=== PATIENT | female | born 1940 | race Caucasian/White ===

== ENCOUNTER → 2021-04-22 | Outpatient (CLI) | payer MEDICARE, OTHER, SELFPAY ==
[2021-04-22 16:16] VITALS: BMI 27.8
--- NOTE | 2021-04-22 16:29 | RAD_ITS ---
STUDY: X-RAY CHEST REASON FOR EXAM: Female, 81 years old. COUGH TECHNIQUE: Frontal and lateral views of the chest. COMPARISON: None. FINDINGS: The lungs are clear and expanded. There is no demonstrated pleural abnormality. Normal size heart. Normal mediastinum and jeffrey. Normal visualized pulmonary arteries. Normal visualized aortic arch and descending thoracic aorta. Moderate scoliosis. Normal visualized ribs, clavicles, and shoulders. There is no demonstrated abnormality of the visualized soft tissue structures of the upper abdomen. RAD/Chest PA and Lateral IMPRESSION: No acute disease Electronically Signed: Kaushal Abarca MD at 18:04 EDT , Service support ,
== END | disposition home or self-care (01) ==
LOC: MTRAD 16:29
PROVIDERS: PCP Family Medicine; Referring Provider Physician Assistant; Visit Provider Physician Assistant
DX: R05 Cough (principal)
CPT/HCPCS: 71046

== ENCOUNTER → 2021-04-26 09:34 | Outpatient (CLI) | payer MEDICARE, OTHER, SELFPAY ==
[2021-04-22 16:16] VITALS: BMI 27.8
[2021-04-26 12:04] LABS: Absolute Lymphocyte Count 2.22 X10^3/uL (0.83-4.51); Absolute Neutrophil Count 12.6 X10^3/uL (2.0-7.7); Basophil# 0.07 X10^3/uL; Basophil% 0.4 % (0-1); Eosinophil# 1.31 X10^3/uL; Eosinophils% 7.5 % (0-5); Hematocrit 38.8 % (37-47); Hemoglobin 12.8 g/dL (12.0-15.0); Lymphocyte # 2.22 X10^3/ul (0.83-4.51); Lymphocyte % 12.6 % (19-41); Mean Corpuscular Hgb 31.5 pg (27.0-32.0); Mean Corpuscular Volume 95.6 fL (81-99); Mean Platelet Vol. 8.6 fl (6.2-12.0); Monocyte# 1.33 X10^3/uL; Monocyte% 7.6 % (0-10); NRBC Flagged by Analyzer 0 % (0-5); Neutrophil # 12.58 X10^3/uL (2.7-7.7); Neutrophil % 71.5 % (47-70); Platelet Count 497 K/mm3 (150-450); RBC Distribution Width CV 12.7 % (11.6-14.6); RBC Distribution Width SD 45.1 fl (35.1-43.9); Red Blood Count 4.06 M/mm3 (4.2-5.4); White Blood Count 17.6 K/mm3 (4.4-11.0)
[2021-04-26 12:30] LABS: ALB/GLOB Ratio 0.8 RATIO (0.9-2.4); AST(SGOT) 13 U/L (15-37); Alanine Aminotransfer ALT/SGPT 19 U/L (13-56); Albumin, Serum 3.6 g/dL (3.2-5.0); Alkaline Phosphatase 102 U/L (45-117); Anion Gap 5 (5-15); BUN 18 mg/dL (7-18); BUN/Creat Ratio 22.3 RATIO (10-20); Chloride 105 mmol/L (98-107); Cholesterol 157 mg/dL (200); Creatinine, Serum 0.81 mg/dL (0.55-1.02); EST Glomerular Filtration Rate 73 mL/min (>60); Est Glom Filt Rate - Afr Amer 88 mL/min (>60); Globulin 4.3 g/dL (2.2-4.2); Glucose 107 mg/dL (74-106); High Density Lipoprotein 67 mg/dL; Potassium 4.2 mmol/L (3.5-5.1); Protein, Total 7.9 g/dL (6.4-8.2); Sodium Level 137 mmol/L (136-145); Thyroid Stim Hormone (TSH) 1.23 uIU/mL (0.358-3.74); Triglycerides 126 mg/dL; Very Low Density Lipoprotein 25 mg/dL (5-40)
[2021-04-26 12:33] LABS: Microalbumin,Random Urine 17.6 mg/L (NO RANGE EST.); Microalbumin:Creatinine Ratio 9.4 mg/g CRE (<30 mg/g CRE)
== END ==
PROVIDERS: PCP Family Medicine; Visit Provider Family Medicine
DX: I10 Essential (primary) hypertension (principal); E78.00 Pure hypercholesterolemia, unspecified; J45.909 Unspecified asthma, uncomplicated
CPT/HCPCS: 36415; 80053; 80061; 82043; 82570; 84443; 85025

== ENCOUNTER 2021-05-01 18:07 | Inpatient (IN) | payer MEDICARE, OTHER, SELFPAY ==
[2021-04-22 16:16] VITALS: BMI 27.8
[2021-05-01] VITALS (9 sets, daily range): BP systolic 118–134; BP diastolic 63–75; PULSE 81–105; RESP 15–28; TEMP 36.7–37.1; O2SAT 87–98; BMI 27.8
--- NOTE | 2021-05-01 18:25 | EKG12_ITS ---
Test Reason : SOB Blood Pressure : / mmHG Vent. Rate : 092 BPM Atrial Rate : 092 BPM P-R Int : 126 ms QRS Dur : 088 ms QT Int : 352 ms P-R-T Axes : -05 -25 018 degrees QTc Int : 435 ms Sinus rhythm with Premature atrial complexes with Aberrant conduction Nonspecific ST abnormality Abnormal ECG Confirmed by MATILDA MORRISON, DORIAN ([id number]), desk editor CIARA FLORES ([id number]) on 05/04/2021 9:21:03 AM Referred By: SHABBIR Confirmed By:DORIAN GREY MD
--- NOTE | 2021-05-01 18:25 | CT_ITS ---
STUDY: CTA CHEST REASON FOR EXAM: Female, 81 years old. hypoxia RADIATION DOSAGE (If Supplied By Facility): CTDIvol = ( 11.66 ) mGy, DLP = ( 433.54 ) mGycm TECHNIQUE: The examination was performed with the intravenous administration of IV 75mL Isovue-370. Post-processing of the angiographic images was performed, with multiplanar reformation and 3D reconstruction. Individualized dose optimization techniques were used for this CT. COMPARISON: None. FINDINGS: Normal enhancement of the main pulmonary artery and right and left pulmonary arteries. Normal enhancement of the bilateral peripheral pulmonary arteries. There is no demonstrated pulmonary embolism. Normal thoracic aorta and visualized great vessels. There is no demonstrated aortic dissection. Normal heart and pericardium. Normal mediastinum. Normal hilar regions. Normal visualized trachea and bronchi. The lungs are well expanded. Ill-defined subpleural groundglass opacities are seen more prominent in the lung bases , may represent atypical pneumonia or viral pneumonia (COVID-19 ?). Normal pleura. Normal chest wall structures. Normal osseous structures. Normal visualized upper abdomen. CT/CTA Chest W/WO Contrast IMPRESSION: No demonstrated pulmonary embolism or arterial dissection. Ill-defined subpleural groundglass opacities are seen more prominent in the lung bases , may represent atypical pneumonia or viral pneumonia (COVID-19 ?). Electronically Signed: Nilda Estrada MD at 19:44 EDT Tel , Service support ,
--- NOTE | 2021-05-01 18:27 | ED.VIS.DYS ---
HPI History of Present Illness Chief Complaint: Shortness of Breath Narrative Narrative: 81-year-old female presenting with dyspnea. She states she has been dyspneic for about 2 weeks. She complains of a cough. She states that her cough is painful but otherwise she does not have any chest pain. She does have pain on deep inspiration in the center of her chest. She denies any fever, chills. She denies change in taste or smell. She is had a COVID-19 vaccine. She is not been exposed to anybody that is ill. After a week of coughing she was taken to urgent care where she had a chest x-ray which was negative. Patient placed on Augmentin anyway and continues to cough and feel dyspneic. Over the last couple of days she has felt more fatigue. Today her son stated that she laid in bed all day. He checked her pulse ox and it was 87. She has history of asthma distantly and not had an attack in many years. She has no nausea or vomiting. [facility] Medical History Acute bronchitis, unspecified Asthma Cough Hypertension SOB (shortness of breath) URI (upper respiratory infection) Home Medications amoxicillin 875 mg-potassium clavulanate 125 mg tablet 1 tab PO BID #20 tab 04/22/21 [Rx Last Taken Unknown] atorvastatin 10 mg tablet 10 mg PO DAILY 04/22/21 [History Last Taken Unknown] lisinopril 2.5 mg tablet 2.5 mg PO DAILY 04/22/21 [History Last Taken Unknown] montelukast 10 mg tablet 10 mg PO DAILY 04/22/21 [History Last Taken Unknown] Allergy/AdvReac Type Severity Reaction Status Date / Time No Known Allergies Allergy Verified 05/01/21 18:10 Social History Smoking Status: Never smoker alcohol intake: never ROS ROS ED Constitutional Constitutional ED: Reports other Details: Fatigue ; Denies chills or fever(s) Eyes Eyes: Denies blurry vision or diplopia ENT ENT ED: Denies rhinorrhea or sore throat Cardiovascular Cardiovascular: Denies orthopnea Respiratory/Chest Respiratory/Chest: Reports dyspnea, dyspnea on exertion and other Details: Painful cough and pain with deep inspiration ; Denies orthopnea Gastrointestinal Gastrointestinal: Denies abdominal pain, constipation, diarrhea, nausea or vomiting Genitourinary Genitourinary ED: Denies dysuria or hematuria Musculoskeletal Musculoskeletal: Denies arthralgias or myalgias Integumentary Denies abscess or rash Neurologic Neurologic: Denies headache(s), paresthesias or weakness Psychiatric Psychiatric: Denies anxiety or depression EXAM Physical Exam Const Vital Signs: 05/01/21 18:08 05/01/21 18:19 05/01/21 18:21 Temperature 98.7 F 98.1 F Temperature Source Temporal Temporal Pulse Rate 105 H 93 Respiratory Rate 16 24 H Respiratory Effort Short of Breath Blood Pressure 127/71 H 127/71 H Blood Pressure Mean 89 89 Pulse Ox 87 88 95 Oxygen Delivery Method Room Air Nasal Cannula Nasal Cannula Oxygen Flow Rate (L/min) 2 2 05/01/21 18:27 05/01/21 19:45 05/01/21 20:01 Temperature 98.6 F 98.3 F Temperature Source Temporal Temporal Pulse Rate 96 82 Respiratory Rate 28 H 20 H Respiratory Effort Blood Pressure 130/63 H 118/65 Blood Pressure Mean 85 82 Pulse Ox 96 97 94 Oxygen Delivery Method Nasal Cannula Nasal Cannula Room Air Oxygen Flow Rate (L/min) 2 2 05/01/21 21:28 05/01/21 22:10 Temperature 98.1 F 98.3 F Temperature Source Temporal Temporal Pulse Rate 92 92 Respiratory Rate 20 H 15 Respiratory Effort Blood Pressure 134/75 H 126/74 H Blood Pressure Mean 94 91 Pulse Ox 98 95 Oxygen Delivery Method Nasal Cannula Nasal Cannula Oxygen Flow Rate (L/min) 2 2 Positive well nourished General Appearance ED: NAD HEENT Reports moist mucous membranes atraumatic Eyes PERRL and EOMs intact bilaterally Neck no lymphadenopathy and supple Resp normal respiratory effort and clear to auscultation bilaterally Cardio regular rate and regular rhythm GI non-tender and non-distended Palpation: soft Extremity General Extremety ED: Negative for edema or tenderness General Extremity: Negative for edema Neuro oriented x3 Sensorium / Orientation: alert and oriented to person Psych mental status grossly normal Thought Process: normal thought process Skin Lesions: no lesions Rashes: no rashes MDM MDM MDM Narrative Medical decision making narrative: Patient presenting with dyspnea and became hypoxic down to 87 at home. Apparently its been 2 weeks of this and worsening over the last 2 days. Her son states she slept all day. He brought her in when he noted that she was hypoxic. Given patient's vitals she was pancultured and worked up for sepsis. She does not look critically ill however. EKG is sinus rhythm at [address] abnormality. CBC showed a leukocytosis of 20.8. Hemoglobin 12.5 and hematocrit 38.0 platelets 399. Patient is not absolutely lymphopenic. Renal function electrolytes are normal. Lactic acid is normal. Troponin 3.6. Urinalysis is negative. CTA of the chest shows ill-defined groundglass opacities but no identifiable PE or dissection. Patient was Covid swab even though she had been vaccinated and this was negative. Given this I discussed with the hospitalist for admission. She is admitted in stable condition. Impression: 1. Leukocytosis 2. Respiratory failure 3. Atypical versus viral pneumonia Lab Data Labs: Laboratory Results - last 24 hr 05/01/21 05/01/21 05/01/21 18:26 18:26 19:41 WBC 20.8 H RBC 4.01 L Hgb 12.5 Hct 38.0 MCV 94.8 MCH 31.2 MCHC 32.9 RDW Std Deviation 43.8 RDW Coeff of Akhil 12.5 Plt Count 399 MPV 8.4 Immature Gran % (Auto) 0.600 Neut % (Auto) 77.2 H Lymph % (Auto) 10.8 L [place] % (Auto) 9.1 Eos % (Auto) 2.0 Baso % (Auto) 0.3 Absolute Neuts (auto) 16.0 H Absolute Lymphs (auto) 2.25 Nucleated RBC % 0 Differential Comment SCANNED Diff Path Review May foll Sodium 134 L Potassium 4.0 Chloride 101 Carbon Dioxide 25.0 Anion Gap 8 BUN 15 Creatinine 0.87 Estim Creat Clear Calc 38.92 Est GFR (MDRD) Af Amer 80 Est GFR (MDRD) Non-Af 66 BUN/Creatinine Ratio 17.2 Glucose 125 H Lactic Acid 0.9 Calcium 9.2 Troponin I High Sens 3.6 Urine Color Urine Clarity Urine pH Ur Specific [place] Urine Protein Urine Glucose (UA) Urine Ketones Urine Occult Blood Urine Nitrite Urine Bilirubin Urine Urobilinogen Ur Leukocyte Esterase Urine RBC Urine WBC Ur Squamous Epith Cells Urine Bacteria Urine Mucus COVID-19 (JOLYNN) 05/01/21 05/01/21 19:45 20:52 WBC RBC Hgb Hct MCV MCH MCHC RDW Std Deviation RDW Coeff of Akhil Plt Count MPV Immature Gran % (Auto) Neut % (Auto) Lymph % (Auto) [place] % (Auto) Eos % (Auto) Baso % (Auto) Absolute Neuts (auto) Absolute Lymphs (auto) Nucleated RBC % Differential Comment Diff Path Review Sodium Potassium Chloride Carbon Dioxide Anion Gap BUN Creatinine Estim Creat Clear Calc Est GFR (MDRD) Af Amer Est GFR (MDRD) Non-Af BUN/Creatinine Ratio Glucose Lactic Acid Calcium Troponin I High Sens Urine Color Yellow Urine Clarity Clear Urine pH 6.5 Ur Specific [place] 1.010 Urine Protein 30 H Urine Glucose (UA) Normal Urine Ketones 5 H Urine Occult Blood 25 H Urine Nitrite Negative Urine Bilirubin Negative Urine Urobilinogen 1 H Ur Leukocyte Esterase 25 H Urine RBC 0-5 SEEN Urine WBC 0 SEEN Ur Squamous Epith Cells 0 SEEN Urine Bacteria 0 SEEN Urine Mucus 0 SEEN COVID-19 (JOLYNN) Not Detected Radiography Diagnostic Testing: Radiology Impression Chest CTA 05/01/21 18:25 IMPRESSION: No demonstrated pulmonary embolism or arterial dissection. Ill-defined subpleural groundglass opacities are seen more prominent in the lung bases , may represent atypical pneumonia or viral pneumonia (COVID-19 ?). Electronically Signed: Nilda Estrada MD at 19:44 EDT Tel , Service support , Discharge Plan Triage Chief Complaint: Shortness of Breath ED Provider: Zana Blevins Dx/Rx/DC Orders Primary Care Provider: Marcello Carlos
[2021-05-01 18:37] LABS: Absolute Lymphocyte Count 2.25 X10^3/uL (0.83-4.51); Basophil# 0.07 X10^3/uL; Basophil% 0.3 % (0-1); Eosinophil# 0.41 X10^3/uL; Hemoglobin 12.5 g/dL (12.0-15.0); Lymphocyte # 2.25 X10^3/ul (0.83-4.51); Lymphocyte % 10.8 % (19-41); Mean Corp Hgb Conc 32.9 g/dL (32-36); Mean Corpuscular Hgb 31.2 pg (27.0-32.0); Mean Corpuscular Volume 94.8 fL (81-99); Mean Platelet Vol. 8.4 fl (6.2-12.0); Monocyte# 1.89 X10^3/uL; Monocyte% 9.1 % (0-10); NRBC Flagged by Analyzer 0 % (0-5); Neutrophil # 16.03 X10^3/uL (2.7-7.7); Neutrophil % 77.2 % (47-70); POSITIVE DIFFERENTIAL YES; Platelet Count 399 K/mm3 (150-450); RBC Distribution Width CV 12.5 % (11.6-14.6); RBC Distribution Width SD 43.8 fl (35.1-43.9); Red Blood Count 4.01 M/mm3 (4.2-5.4); White Blood Count 20.8 K/mm3 (4.4-11.0)
[2021-05-01 18:46] LABS: Differential Indicated SCAN CRITERIA MET
[2021-05-01 18:56] LABS: Anion Gap 8 (5-15); BUN 15 mg/dL (7-18); BUN/Creat Ratio 17.2 RATIO (10-20); Calcium,Total 9.2 mg/dL (8.5-10.1); Chloride 101 mmol/L (98-107); Creatinine, Serum 0.87 mg/dL (0.55-1.02); EST Glomerular Filtration Rate 66 mL/min (>60); Est Glom Filt Rate - Afr Amer 80 mL/min (>60); Estimated Creatinine Clearance 38.92 ml/min; Glucose 125 mg/dL (74-106); Sodium Level 134 mmol/L (136-145); Troponin-I HS 3.6 pg/mL (3.0-53.7)
[2021-05-01 19:03] LABS: Differential Comment SCANNED
[2021-05-01 20:33] LABS: Lactic Acid 0.9 mmol/L (0.4-1.9)
[2021-05-01] MEDS: Ketorolac 15 MG/ML Vial IV (20:33)
[2021-05-01 20:58] LABS: Bacteria 0 SEEN /hpf (None Seen); Mucous, Urine 0 SEEN /hpf (<or=2+); Squamous Epithelial Cells - UA 0 SEEN /hpf (5-10); White Blood Cells 0 SEEN /hpf (0-5)
[2021-05-01 20:59] LABS: Color, Urine Yellow (Yellow); Glucose, Dipstick Normal (Normal); Ketone-Dipstick 5 mg/dl (Negative); Leukocyte Esterase-Dipstick 25 /ul (Negative); Nitrite-Dipstick Negative (Negative); Occult Blood-Urine 25 /ul (Negative); Protein-Dipstick 30 mg/dl (Negative); Urine Bilirubin Dipstick Negative (Negative); Urine Clarity Clear (Clear); Urine Urobilinogen 1 mg/dl (Normal); Urine pH 6.5 (5.0 - 8.0)
[2021-05-01 21:05] LABS: Red Blood Cells-Urine 0-5 SEEN /hpf (0-5)
--- NOTE | 2021-05-01 22:50 | HP.PCM.HOS_ITS ---
HPI - General General Date of Admission: 05/01/21 HPI Narrative CRESCENCIO GARVIN, is a 81 F with a significant history of asthma and hypertension who presents to the emergency department with a 2-week history of a persistent and progressively worsening shortness of breath. Patient went to the urgent care and was prescribed Augmentin of which she was only 1 more dose left. On the day of presentation patient got more dyspneic. Her son checked her oxygen saturation and her oxygenation was low. Associated with symptoms is weakness and lethargy. Further she has nonproductive cough. She reported her symptoms started with nasal and sinus congestion. She got both [employer] vaccination with the last dose in November 2020. Her taste sensation has not changed. She has nasal polyps and does not have a good sense of smell at baseline. [facility] Medical History (Updated 05/02/21 @ 01:[address] Julio C Enrique MD) Acute bronchitis, unspecified Asthma Cough Hypertension Non-smoker SOB (shortness of breath) URI (upper respiratory infection) Home Medications amoxicillin 875 mg-potassium clavulanate 125 mg tablet 1 tab PO BID #20 tab 04/22/21 [Rx Last Taken 05/01/21 09:00] atorvastatin 10 mg tablet 10 mg PO DAILY 04/22/21 [History Last Taken 05/01/21 09:00] lisinopril 2.5 mg tablet 2.5 mg PO DAILY 04/22/21 [History Last Taken 05/01/21 09:00] montelukast 10 mg tablet 10 mg PO DAILY 04/22/21 [History Last Taken 05/01/21 09:00] Allergy/AdvReac Type Severity Reaction Status Date / Time No Known Allergies Allergy Verified 05/01/21 18:10 Family History (Updated 05/02/21 @ 01:[address] Julio C Enrique MD) Other Heart disease Surgical History (Updated 05/02/21 @ 01:[address] Julio C Enrique MD) H/O: hysterectomy Social History Smoking Status: Never smoker alcohol intake: never ROS ROS Narrative 12 point review of system is negative except as stated in HPI. Vital Signs Vital Signs Vital Signs: 05/01/21 18:08 05/01/21 18:19 05/01/21 18:21 Temperature 98.7 F 98.1 F Temperature Source Temporal Temporal Pulse Rate 105 H 93 Respiratory Rate 16 24 H Respiratory Effort Short of Breath Blood Pressure 127/71 H 127/71 H Blood Pressure Mean 89 89 Pulse Ox 87 88 95 Oxygen Delivery Method Room Air Nasal Cannula Nasal Cannula Oxygen Flow Rate (L/min) 2 2 05/01/21 18:27 05/01/21 19:45 05/01/21 20:01 Temperature 98.6 F 98.3 F Temperature Source Temporal Temporal Pulse Rate 96 82 Respiratory Rate 28 H 20 H Respiratory Effort Blood Pressure 130/63 H 118/65 Blood Pressure Mean 85 82 Pulse Ox 96 97 94 Oxygen Delivery Method Nasal Cannula Nasal Cannula Room Air Oxygen Flow Rate (L/min) 2 2 05/01/21 21:28 05/01/21 22:10 Temperature 98.1 F 98.3 F Temperature Source Temporal Temporal Pulse Rate 92 92 Respiratory Rate 20 H 15 Respiratory Effort Blood Pressure 134/75 H 126/74 H Blood Pressure Mean 94 91 Pulse Ox 98 95 Oxygen Delivery Method Nasal Cannula Nasal Cannula Oxygen Flow Rate (L/min) 2 2 Weight Weight: 67 kg Body Mass Index (BMI) 27.8 Physical Exam Narrative Physical exam: General: Well-nourished, well-developed, no acute distress Head: Normocephalic, atraumatic, no tenderness Eyes: PERRLA, EOMI ENT, no trauma, moist mucous membranes, no rhinorrhea Neck: Nontender, full range of motion, no spinal tenderness, deformities, step- off CVS: Regular rate and rhythm Respiratory no acute distress, clear to auscultation bilaterally, chest wall nontender, no wheezing Abdomen: Soft, nontender, nondistended, normal bowel sounds, no masses : Deferred Extremities: Nontender full range of motion, no trauma Skin: Normal color, no trauma, abrasions Neuro: Alert, oriented, cranial nerves II through XII grossly intact. Results Lab / Micro Data Result Diagrams: 05/01/21 18:26 05/01/21 18:26 Labs: Laboratory Results - last 24 hr 05/01/21 05/01/21 05/01/21 18:26 18:26 19:41 WBC 20.8 H RBC 4.01 L Hgb 12.5 Hct 38.0 MCV 94.8 MCH 31.2 MCHC 32.9 RDW Std Deviation 43.8 RDW Coeff of Akhil 12.5 Plt Count 399 MPV 8.4 Immature Gran % (Auto) 0.600 Neut % (Auto) 77.2 H Lymph % (Auto) 10.8 L [place] % (Auto) 9.1 Eos % (Auto) 2.0 Baso % (Auto) 0.3 Absolute Neuts (auto) 16.0 H Absolute Lymphs (auto) 2.25 Nucleated RBC % 0 Differential Comment SCANNED Diff Path Review May foll Sodium 134 L Potassium 4.0 Chloride 101 Carbon Dioxide 25.0 Anion Gap 8 BUN 15 Creatinine 0.87 Estim Creat Clear Calc 38.92 Est GFR (MDRD) Af Amer 80 Est GFR (MDRD) Non-Af 66 BUN/Creatinine Ratio 17.2 Glucose 125 H Lactic Acid 0.9 Calcium 9.2 Troponin I High Sens 3.6 Urine Color Urine Clarity Urine pH Ur Specific [place] Urine Protein Urine Glucose (UA) Urine Ketones Urine Occult Blood Urine Nitrite Urine Bilirubin Urine Urobilinogen Ur Leukocyte Esterase Urine RBC Urine WBC Ur Squamous Epith Cells Urine Bacteria Urine Mucus COVID-19 (JOLYNN) 05/01/21 05/01/21 19:45 20:52 WBC RBC Hgb Hct MCV MCH MCHC RDW Std Deviation RDW Coeff of Akhil Plt Count MPV Immature Gran % (Auto) Neut % (Auto) Lymph % (Auto) [place] % (Auto) Eos % (Auto) Baso % (Auto) Absolute Neuts (auto) Absolute Lymphs (auto) Nucleated RBC % Differential Comment Diff Path Review Sodium Potassium Chloride Carbon Dioxide Anion Gap BUN Creatinine Estim Creat Clear Calc Est GFR (MDRD) Af Amer Est GFR (MDRD) Non-Af BUN/Creatinine Ratio Glucose Lactic Acid Calcium Troponin I High Sens Urine Color Yellow Urine Clarity Clear Urine pH 6.5 Ur Specific [place] 1.010 Urine Protein 30 H Urine Glucose (UA) Normal Urine Ketones 5 H Urine Occult Blood 25 H Urine Nitrite Negative Urine Bilirubin Negative Urine Urobilinogen 1 H Ur Leukocyte Esterase 25 H Urine RBC 0-5 SEEN Urine WBC 0 SEEN Ur Squamous Epith Cells 0 SEEN Urine Bacteria 0 SEEN Urine Mucus 0 SEEN COVID-19 (JOLYNN) Not Detected Radiology Impression Chest CTA 05/01/21 18:25 IMPRESSION: No demonstrated pulmonary embolism or arterial dissection. Ill-defined subpleural groundglass opacities are seen more prominent in the lung bases , may represent atypical pneumonia or viral pneumonia (COVID-19 ?). Electronically Signed: Nilda Estrada MD at 19:44 EDT Tel , Service support , Assessment & Plan Assessment/Plan (1) Respiratory insufficiency: PLAN: Acute hypoxemic respiratory insufficiency/pneumonia Pneumonia Gram-positive; gram-negative; atypical or viral. Reportedly was hypoxic at home. Required supplemental oxygen to maintain appropriate saturations emergency department. Impression of chest x-ray by radiology: No acute disease. Actual chest x-ray image was independently interpreted and I agree with radiologist interpretation. COVID-19 PCR was negative. Impression of chest CT by radiologist: No demonstrated pulmonary embolism or arterial dissection. Ill-defined subpleural groundglass opacities are seen more prominent in the lung bases , may represent atypical pneumonia or viral pneumonia (COVID-19 ?) We will get comprehensive respiratory pathogen panel. Procalcitonin ordered emergency department; follow. Review of emergency department labs showed a white count of 20.8. Review of old records shows that on 04/26/2021 her white count was 17.6. Leukocytosis is with neutrophilic predominance and lymphopenia. Urinalysis at the emergency department was reviewed; unrevealing. Sputum culture ordered. Give last dose of Augmentin ordered outpatients. Levaquin IV ordered. Hyperlipidemia Lipitor continued. Hypertension: Blood pressure is stable in regard to his age. Lisinopril 2.5 mg continued. Trend blood pressure and adjust blood pressure medication as needed. DVT prophylaxis: Subcutaneous Lovenox ordered
[2021-05-02] VITALS (8 sets, daily range): BP systolic 103–131; BP diastolic 48–60; PULSE 67–77; RESP 16–18; TEMP 36.2–37.2; O2SAT 90–97; BMI 27.8
[2021-05-02] MEDS: guaiFENesin 1,200 MG Tablet 1200 MG PO ×3 (00:58→21:36)
[2021-05-02] MEDS: levoFLOXacin IV 500 MG/100 ML BAG 100 MG IV (00:58)
[2021-05-02] MEDS: Amox/Clavulanate 875 MG Tablet PO (01:04)
[2021-05-02] MEDS: 0.9% Saline Lock 10 ML Syringe IV ×2 (01:04→21:41)
[2021-05-02] MEDS: MELATONIN 3 MG TABLET PO ×2 (02:22→21:49)
[2021-05-02 06:06] LABS: Absolute Lymphocyte Count 2.33 X10^3/uL (0.83-4.51); Absolute Neutrophil Count 11.2 X10^3/uL (2.0-7.7); Basophil# 0.06 X10^3/uL; Basophil% 0.4 % (0-1); Eosinophil# 0.88 X10^3/uL; Eosinophils% 5.5 % (0-5); Hematocrit 35.6 % (37-47); Hemoglobin 11.8 g/dL (12.0-15.0); Lymphocyte # 2.33 X10^3/ul (0.83-4.51); Lymphocyte % 14.5 % (19-41); Mean Corp Hgb Conc 33.1 g/dL (32-36); Mean Corpuscular Hgb 31.4 pg (27.0-32.0); Mean Corpuscular Volume 94.7 fL (81-99); Mean Platelet Vol. 8.4 fl (6.2-12.0); Monocyte# 1.57 X10^3/uL; Monocyte% 9.8 % (0-10); NRBC Flagged by Analyzer 0 % (0-5); Neutrophil # 11.17 X10^3/uL (2.7-7.7); Neutrophil % 69.5 % (47-70); POSITIVE DIFFERENTIAL YES; Platelet Count 356 K/mm3 (150-450); RBC Distribution Width CV 12.7 % (11.6-14.6); Red Blood Count 3.76 M/mm3 (4.2-5.4); White Blood Count 16.1 K/mm3 (4.4-11.0)
[2021-05-02 06:07] LABS: Differential Indicated SCAN CRITERIA MET
[2021-05-02 06:33] LABS: Anion Gap 6 (5-15); BUN 17 mg/dL (7-18); BUN/Creat Ratio 21.8 RATIO (10-20); Calcium,Total 8.9 mg/dL (8.5-10.1); Chloride 101 mmol/L (98-107); Creatinine, Serum 0.78 mg/dL (0.55-1.02); EST Glomerular Filtration Rate 76 mL/min (>60); Est Glom Filt Rate - Afr Amer 92 mL/min (>60); Estimated Creatinine Clearance 33.86 ml/min; Glucose 103 mg/dL (74-106); Potassium 3.9 mmol/L (3.5-5.1); Sodium Level 134 mmol/L (136-145)
--- NOTE | 2021-05-02 06:37 | PCM.PN.HOSP ---
Subjective Subjective Patient notes feeling improved since initial ED presentation with less dyspnea although sometimes worsened when she is attempting to exert herself or move in the room. She does note ongoing dry cough and has been unable to bring any sputum sample up. She denies any recent ill contacts. Patient denies fevers, chills, nausea, emesis, abdominal pain, chest pain. Objective Data Objective Data Vital Signs: Vital Signs Temp Pulse Resp BP Pulse Ox 97.2 F L 73 16 131/60 H 97 05/02/21 05:44 05/02/21 05:44 05/02/21 05:44 05/02/21 05:44 05/02/21 05:44 Oxygen Flow Rate (L/min) 2 Oxygen Delivery Method Nasal Cannula Weight: 147 lb 7.828 oz Body Mass Index (BMI) 27.8 Intake & Output: Intake and Output for Last 24 Hours 04/30/21 05/01/21 05/02/21 23:59 23:59 23:59 Intake Total 100 / 100 Balance 100 / 100 Lab / Micro Data Result Diagrams: 05/02/21 05:54 05/02/21 05:54 Labs: Laboratory Results - last 24 hr 05/01/21 18:26: WBC 20.8 H, RBC 4.01 L, Hgb 12.5, Hct 38.0, MCV 94.8, MCH 31.2, MCHC 32.9, RDW Std Deviation 43.8, RDW Coeff of Akhil 12.5, Plt Count 399, MPV 8.4, Immature Gran % (Auto) 0.600, Neut % (Auto) 77.2 H, Lymph % (Auto) 10.8 L, [place] % (Auto) 9.1, Eos % (Auto) 2.0, Baso % (Auto) 0.3, Absolute Neuts (auto) 16.0 H, Absolute Lymphs (auto) 2.25, Nucleated RBC % 0, Differential Comment SCANNED, Diff Path Review February05/01/21 18:26: Sodium 134 L, Potassium 4.0, Chloride 101, Carbon Dioxide 25.0, Anion Gap 8, BUN 15, Creatinine 0.87, Estim Creat Clear Calc 38.92, Est GFR (MDRD) Af Amer 80, Est GFR (MDRD) Non-Af 66, BUN/Creatinine Ratio 17.2, Glucose 125 H, Calcium 9.2, Troponin I High Sens 3.6 05/01/21 19:41: Lactic Acid 0.9 05/01/21 19:45: COVID-19 (JOLYNN) Not Detected 05/01/21 20:52: Urine Color Yellow, Urine Clarity Clear, Urine pH 6.5, Ur Specific [place] 1.010, Urine Protein 30 H, Urine Glucose (UA) Normal, Urine Ketones 5 H, Urine Occult Blood 25 H, Urine Nitrite Negative, Urine Bilirubin Negative, Urine Urobilinogen 1 H, Ur Leukocyte Esterase 25 H, Urine RBC 0-5 SEEN, Urine WBC 0 SEEN, Ur Squamous Epith Cells 0 SEEN, Urine Bacteria 0 SEEN, Urine Mucus 0 SEEN 05/02/21 05:54: WBC 16.1 H, RBC 3.76 L, Hgb 11.8 L, Hct 35.6 L, MCV 94.7, MCH 31.4, MCHC 33.1, RDW Std Deviation 44.0 H, RDW Coeff of Akhil 12.7, Plt Count 356, MPV 8.4, Immature Gran % (Auto) 0.300, Neut % (Auto) 69.5, Lymph % (Auto) 14.5 L, [place] % (Auto) 9.8, Eos % (Auto) 5.5 H, Baso % (Auto) 0.4, Absolute Neuts (auto) 11.2 H, Absolute Lymphs (auto) 2.33, Nucleated RBC % 0, Diff Path Review February05/02/21 05:54: Sodium 134 L, Potassium 3.9, Chloride 101, Carbon Dioxide 27.0, Anion Gap 6, BUN 17, Creatinine 0.78, Estim Creat Clear Calc 33.86, Est GFR (MDRD) Af Amer 92, Est GFR (MDRD) Non-Af 76, BUN/Creatinine Ratio 21.8 H, Glucose 103, Calcium 8.9 Micro: Microbiology 05/02/21 01:22 Mucosa - Nasopharyngeal Respiratory Panel (PCR) - Final 05/02/21 Unknown Urine, Clean Catch Legionella Antigen - Final 05/02/21 Unknown Urine, Clean Catch Streptococcus pneumoniae Antigen (M - Final Radiography Diagnostic Testing: Radiology Impression Chest CTA 05/01/21 18:25 IMPRESSION: No demonstrated pulmonary embolism or arterial dissection. Ill-defined subpleural groundglass opacities are seen more prominent in the lung bases , may represent atypical pneumonia or viral pneumonia (COVID-19 ?). Electronically Signed: Nilda Estrada MD at 19:44 EDT Tel , Service support , Physical Exam Narrative Physical Examination: General: Awake, alert, oriented x 3 and cooperative, laying in the medical surgical bed, notes feeling improved but does appear fatigued. Skin: Normal color, normal turgor, no icterus, no cyanosis. HEENT: AT/NC, EOMI, PERRLA, mildly dry MM, no carotid bruits or JVD noted. Lungs: Diminished breath sounds, greater bases, poor deep inspiratory effort, greater bilateral bases, no rales, ronchi or wheezing. Heart: Regular rate and rhythm; no gallop, rub audible. Abdomen: Soft, NTTP, ND, distant normal BS, no HSM. Extremities: No cyanosis, clubbing, or edema. Neurological: Patient awake, alert, oriented as noted, cognitive function appears intact; pupils equally reactive to light and accommodation, cranial nerves II-XII grossly normal, moving all 4 extremities, no focal deficits, strength moderately globally decreased. Psychiatric: Affect appears fatigued, mildly flat, no acute evidence of depressive or anxiety feelings. Assessment & Plan Assessment/Plan (1) Pneumonia: QUALIFIERS: Pneumonia type: due to unspecified organism Laterality: bilateral Lung location: lower lobe of lung Qualified Code(s): J18.9 - Pneumonia, unspecified organism PLAN: The patient is an 81 y/o F w/ PMHx: Asthma w/ allergic rhinitis, HTN, HLD who presents to the [facility] ED on 05/01/21 with history of 2 weeks of persistent dyspnea, cough which is nonproductive progressively worsening with recent urgent care evaluation with initiation of oral Augmentin regimen which was near completion with worsening respiratory status with hypoxia prompting ED evaluation. 1. Acute Bilateral Pneumonia, Atypical, Possibly Viral with associated Acute Hypoxic Respiratory Insufficiency: CXR in the ED with no acute cardiopulmonary findings, follow-up CTPA with no acute PE, arterial dissection with noted ill-defined subpleural ground-glass opacities more prominent bases more typical of atypical pneumonia. Patient admitted to [place], maintained on IV levaquin, negative urine antigens, negative respiratory viral panel, pending COVID PCR to be cautious despite vaccination history, will continue on oxygen with wean as tolerated to room air, PRN albuterol, HOB, IS parameters. Bld cx x 2 obtained in the ED. 2. Chronic Asthma with allergic rhinitis: Will maintain on oxygen with wean as tolerated to room air, currently not marked wheezing, not inclined to add steroids at this time but low threshold, PRN albuterol, HOB, IS parameters, continue montelukast regimen. 3. Hypertension: Continue home regimen including lisinopril, PRN hydralazine. 4. Hyperlipidemia: Continue home statin regimen. 5. DVT prophylaxis: SCDs, Lovenox. 6. CODE STATUS: Full code. Charges/Coding Visit Charges Inpatient E&M: 18813 Subs Hosp L2
[2021-05-02] MEDS: Montelukast 10 MG Tablet PO (09:12)
[2021-05-02] MEDS: Enoxaparin 40 MG/0.4 ML Syringe SC (09:12)
[2021-05-02] MEDS: Lisinopril 2.5 MG Tablet PO (09:12)
--- NOTE | 2021-05-02 12:15 | CASEMGMT ---
RN CM COMPLIANCE ASSISTANT CM to room to meet with patient for initial transition planning/care coordination assessment. RN SHASHANK introduced self and role at [facility]. Pt voices understanding and consents to assessment at this time. Pt resting in bed in no distress at this time. Pt is A/O at this time and answers all questions appropriately. Care providers, pharmacy, and demographics verified/updated at this time. PCP:Dr Marcello Carlos Specialists:denies Preferred Pharmacy: [facility] Retail pharmacy Insurance: [facility], [place] Prescription Benefit: Yes Living Will/HPOA: Has both LW and HPOA, who is her son, Presley Rising LNOK: Son/Presley MARCH. Daughter, Michelle--lives in [place] Living Arrangements: Lives alone in one-story home w/1 step to enter. Independent w/ADL's and IADL's. SonPresley, lives nearby. Transportation: Pt states drives self and states no transportation concerns at this time. DME: Pt has comfort height commode. Does not use any DME to ambulate. Denies having other DME and denies any need for DME. Pt does not have Home O2. Pt currently on 2 L/M. Pt was provided with list of DME providers consistent with the patient's preferred geographic region, medical needs, and insurance network. The pt's states [employer]. HHC/SNF: No history of either and denies needs. PT/OT evals reviewed--no additional therapy is recommended. Pt wishes to return home and states has no concerns with going home at time of discharge. CM to follow for home oxygen needs and any further discharge planning/needs. Pt voices no further concerns/needs at this time. Advised pt to ask for CM if any further questions/concerns/needs arise. Voices understanding. PLAN: Home w/family support and discharge plans in place. CM to follow for any home O2 needs @ discharge. Salty PAUL RN, CM
[2021-05-02 13:10] LABS: Pathologist Review Reviewed
--- NOTE | 2021-05-02 15:27 | CHAPLAIN ---
Type of Pastoral Visit _x__ Initial Visit ___ Follow-up Visit ___ On-call Visit ___ General Patient Visit ___ Spiritual Assessment ___ Family Conference ___ Bereavement ___ Rapid Response ___ Code Blue ___ Other (describe below) Pastoral Care Referral From _x__ Patient ___ Family ___ Nurse ___ Physician ___ Platen Drier Operator ___ Casing Splitter ___ Other (describe below) Sacrament/Intervention ___ Active listening ___ Anointing ___ Hindu ___ Bereavement ___ Communion ___ Zaina exploration ___ ___ Life review _x__ Prayer ___ Reconciliation ___ Sacrament of Sick _x__ Supportive presence ___ Wedding ___ Other (describe below) Pastoral Comments patient just wants to go home
[2021-05-02] MEDS: Atorvastatin Calcium 10 MG Tablet PO (21:36)
[2021-05-02] MEDS: levoFLOXacin IV 250 MG/50 ML BAG 50 MG IV (21:42)
[2021-05-03] VITALS (11 sets, daily range): BP systolic 115–119; BP diastolic 45–62; PULSE 77–82; RESP 18; TEMP 36.7–37.2; O2SAT 86–95
[2021-05-03] MEDS: guaiFENesin 10 ML UDC (200MG/10ML) PO (04:30)
--- NOTE | 2021-05-03 06:17 | PN.HOSP_ITS ---
Subjective Subjective Patient notes feeling improved since initial presentation with less coughing and less dyspnea. She did have oxygenation trial this a.m. however and did significantly drop with any ambulatory effort. Patient denies significantly worsened dyspnea with this occasion but does understand importance of continuing to monitor. Patient also with underlying asthma with ongoing significantly diminished breath sounds with steroid initiation. Patient denies fevers, chills, nausea, emesis, abdominal pain, chest pain. Objective Data Objective Data Vital Signs: Vital Signs Temp Pulse Resp BP Pulse Ox 98.1 F 80 18 115/45 L 92 05/03/21 04:24 05/03/21 04:24 05/03/21 04:24 05/03/21 04:24 05/03/21 04:34 Oxygen Flow Rate (L/min) 1 Oxygen Delivery Method Nasal Cannula Weight: 147 lb 7.828 oz Body Mass Index (BMI) 27.8 Intake & Output: Intake and Output for Last 24 Hours 05/01/21 05/02/21 05/03/21 23:59 23:59 23:59 Intake Total 970 / 970 100 / 100 Balance 970 / 970 100 / 100 Lab / Micro Data Result Diagrams: 05/03/21 06:41 05/03/21 06:41 Labs: Laboratory Results - last 24 hr 05/01/21 18:26: Diff Path Review Reviewed 05/01/21 18:26: Procalcitonin 0.10 H 05/02/21 05:54: Diff Path Review May 05/02/21 05:54: Sodium 134 L, Potassium 3.9, Chloride 101, Carbon Dioxide 27.0, Anion Gap 6, BUN 17, Creatinine 0.78, Estim Creat Clear Calc 33.86, Est GFR (MDRD) Af Amer 92, Est GFR (MDRD) Non-Af 76, BUN/Creatinine Ratio 21.8 H, Glucose 103, Calcium 8.9 Micro: Microbiology 05/02/21 01:22 Mucosa - Nasopharyngeal Respiratory Panel (PCR) - Final 05/02/21 Unknown Urine, Clean Catch Legionella Antigen - Final 05/02/21 Unknown Urine, Clean Catch Streptococcus pneumoniae Antigen (M - Final Physical Exam Narrative Physical Examination: General: Awake, alert, oriented x 3 and cooperative, laying in the medical [place] hospital bed, fatigued appearing. Skin: Normal color, normal turgor, no icterus, no cyanosis. HEENT: AT/NC, EOMI, PERRLA, mildly dry MM. Lungs: Diffusely diminished breath sounds, greater bases, poor effort, mild end expiratory wheeze occasionally, no rales or rhonchi. . Heart: Regular rate and rhythm; no gallop, rub audible. Abdomen: Soft, NTTP, ND, distant normal BS. Extremities: No cyanosis, clubbing, or edema. Neurological: Patient awake, alert, oriented as noted, cognitive function appears intact; pupils equally reactive to light and accommodation, cranial nerves II-XII grossly normal, moving all 4 extremities, no focal deficits, strength moderately globally decreased. Psychiatric: Affect appears fatigued, no acute evidence of depressive or anxiety feelings. Assessment & Plan Assessment/Plan (1) Pneumonia: QUALIFIERS: Pneumonia type: due to unspecified organism Laterality: bilateral Lung location: lower lobe of lung Qualified Code(s): J18.9 - Pneumonia, unspecified organism PLAN: The patient is an 81 y/o F w/ PMHx: Asthma w/ allergic rhinitis, HTN, HLD who presents to the [facility] ED on 05/01/21 with history of 2 weeks of persistent dyspnea, cough which is nonproductive progressively worsening with recent urgent care evaluation with initiation of oral Augmentin regimen which was near completion with worsening respiratory status with hypoxia prompting ED evaluation. 1. Acute Bilateral Pneumonia, Atypical, Possibly Viral with associated Acute Hypoxic Respiratory Insufficiency and concern for concurrent mild Asthma Exacerbation: CXR in the ED with no acute cardiopulmonary findings, follow-up CTPA with no acute PE, arterial dissection with noted ill-defined subpleural ground-glass opacities more prominent bases more typical of atypical pneumonia. Patient admitted to [place], maintained on IV levaquin, negative urine antigens, negative respiratory viral panel, negative COVID PCR with vaccination history, 05/03/21 planned initiate on solumedrol given concern for concurrent mild asthma exacerbation, will continue on oxygen with wean as tolerated to room air, PRN albuterol, HOB, IS parameters. 05/03/21 CBC w/ improving trend, WBC 16.2 with L shift, but improving. Given steroid start would expect some increase on repeat in AM. Remains afebrile. Will ontinue montelukast regimen. 2. Hypertension: Continue home regimen including lisinopril, PRN hydralazine. 3. Hyperlipidemia: Continue home statin regimen. 4. DVT prophylaxis: SCDs, Lovenox. 5. CODE STATUS: Full code. Charges/Coding Visit Charges Inpatient E&M: 43899 Subs Hosp L3
[2021-05-03 07:30] LABS: Absolute Lymphocyte Count 1.79 X10^3/uL (0.83-4.51); Absolute Neutrophil Count 11.7 X10^3/uL (2.0-7.7); Basophil# 0.05 X10^3/uL; Basophil% 0.3 % (0-1); Eosinophil# 0.72 X10^3/uL; Eosinophils% 4.4 % (0-5); Hematocrit 34.6 % (37-47); Hemoglobin 11.2 g/dL (12.0-15.0); Lymphocyte # 1.79 X10^3/ul (0.83-4.51); Lymphocyte % 11.1 % (19-41); Mean Corp Hgb Conc 32.4 g/dL (32-36); Mean Corpuscular Hgb 30.8 pg (27.0-32.0); Mean Corpuscular Volume 95.1 fL (81-99); Mean Platelet Vol. 8.8 fl (6.2-12.0); Monocyte# 1.87 X10^3/uL; Monocyte% 11.6 % (0-10); NRBC Flagged by Analyzer 0 % (0-5); Neutrophil # 11.67 X10^3/uL (2.7-7.7); POSITIVE DIFFERENTIAL YES; Platelet Count 391 K/mm3 (150-450); RBC Distribution Width CV 12.4 % (11.6-14.6); RBC Distribution Width SD 43.7 fl (35.1-43.9); Red Blood Count 3.64 M/mm3 (4.2-5.4); White Blood Count 16.2 K/mm3 (4.4-11.0)
[2021-05-03 07:40] LABS: Differential Indicated SCAN CRITERIA MET
[2021-05-03 07:55] LABS: ALB/GLOB Ratio 0.6 RATIO (0.9-2.4); AST(SGOT) 7 U/L (15-37); Alanine Aminotransfer ALT/SGPT 12 U/L (13-56); Albumin, Serum 2.6 g/dL (3.2-5.0); Alkaline Phosphatase 99 U/L (45-117); Anion Gap 4 (5-15); BUN 17 mg/dL (7-18); BUN/Creat Ratio 24.3 RATIO (10-20); Calcium,Total 8.9 mg/dL (8.5-10.1); Chloride 103 mmol/L (98-107); EST Glomerular Filtration Rate 85 mL/min (>60); Est Glom Filt Rate - Afr Amer 103 mL/min (>60); Estimated Creatinine Clearance 33.86 ml/min; Globulin 4.4 g/dL (2.2-4.2); Glucose 121 mg/dL (74-106); Sodium Level 135 mmol/L (136-145)
[2021-05-03] MEDS: guaiFENesin 1,200 MG Tablet 1200 MG PO ×2 (09:49→21:21)
[2021-05-03] MEDS: Enoxaparin 40 MG/0.4 ML Syringe SC (09:49)
[2021-05-03] MEDS: Montelukast 10 MG Tablet PO (09:49)
[2021-05-03] MEDS: Lisinopril 2.5 MG Tablet PO (09:50)
--- NOTE | 2021-05-03 10:36 | CASEMGMT ---
Addendum entered by Eusebio Wen 05/03/21 16:18: Pt will not be discharged today. [employer] has delivered portable oxygen tank to pt's room. Call placed to [employer] and spoke w/Rachael @ Corporate office and she was made aware. She states she will notify [facility]. Original Note: MADONNA ENCARNACION NOTE: Pt qualifies for Home O2 @ 3 L/M w/exertion. Script obtained from Dr Correia and faxed to [facility] at this time. Call placed to [employer] and spoke w/Chasity. She was made aware pt is discharging today. Awaiting delivery of oxygen. Pt aware she is to call [facility] when she arrives home to have additional O2 tanks/concentrator delivered. Salty PAUL RN, CM
[2021-05-03] MEDS: 0.9% Saline Lock 10 ML Syringe IV ×2 (12:26→15:20)
[2021-05-03 13:10] LABS: Pathologist Review Reviewed
[2021-05-03] MEDS: levoFLOXacin IV 250 MG/50 ML BAG 50 MG IV (21:21)
[2021-05-03] MEDS: Atorvastatin Calcium 10 MG Tablet PO (21:21)
[2021-05-03] MEDS: MELATONIN 3 MG TABLET PO (22:36)
[2021-05-04 02:50] VITALS: BP 147/71; PULSE 89; RESP 18; TEMP 36.6; O2SAT 95
[2021-05-04] MEDS: 0.9% Saline Lock 10 ML Syringe IV (06:03)
[2021-05-04 06:08] LABS: Absolute Lymphocyte Count 1.66 X10^3/uL (0.83-4.51); Absolute Neutrophil Count 10.3 X10^3/uL (2.0-7.7); Basophil# 0.03 X10^3/uL; Basophil% 0.2 % (0-1); Eosinophil# 0.01 X10^3/uL; Eosinophils% 0.1 % (0-5); Hematocrit 35.6 % (37-47); Hemoglobin 11.8 g/dL (12.0-15.0); Lymphocyte # 1.66 X10^3/ul (0.83-4.51); Lymphocyte % 13.2 % (19-41); Mean Corp Hgb Conc 33.1 g/dL (32-36); Mean Corpuscular Hgb 31.2 pg (27.0-32.0); Mean Corpuscular Volume 94.2 fL (81-99); Mean Platelet Vol. 8.6 fl (6.2-12.0); Monocyte# 0.47 X10^3/uL; Monocyte% 3.7 % (0-10); NRBC Flagged by Analyzer 0 % (0-5); Neutrophil # 10.31 X10^3/uL (2.7-7.7); Neutrophil % 81.8 % (47-70); Platelet Count 415 K/mm3 (150-450); RBC Distribution Width CV 12.2 % (11.6-14.6); RBC Distribution Width SD 42.5 fl (35.1-43.9); Red Blood Count 3.78 M/mm3 (4.2-5.4); White Blood Count 12.6 K/mm3 (4.4-11.0)
--- NOTE | 2021-05-04 06:22 | PN.HOSP_ITS ---
Objective Data Objective Data Vital Signs: Vital Signs Temp Pulse Resp BP Pulse Ox 97.9 F 89 18 147/71 H 95 05/04/21 02:50 05/04/21 02:50 05/04/21 02:50 05/04/21 02:50 05/04/21 02:50 Oxygen Flow Rate (L/min) [ 3 AMBULATING with Oxygen #1] Oxygen Flow Rate (L/min) 2 Oxygen Delivery Method Nasal Cannula Weight: 147 lb 7.828 oz Body Mass Index (BMI) 27.8 Intake & Output: Intake and Output for Last 24 Hours 05/02/21 05/03/21 05/04/21 23:59 23:59 23:59 Intake Total 970 / 970 390 / 390 Balance 970 / 970 390 / 390 Lab / Micro Data Result Diagrams: 05/04/21 05:50 05/03/21 06:41 Labs: Laboratory Results - last 24 hr 05/02/21 05:54: Diff Path Review Reviewed 05/03/21 06:41: WBC 16.2 H, RBC 3.64 L, Hgb 11.2 L, Hct 34.6 L, MCV 95.1, MCH 30.8, MCHC 32.4, RDW Std Deviation 43.7, RDW Coeff of Akhil 12.4, Plt Count 391, MPV 8.8, Immature Gran % (Auto) 0.600, Neut % (Auto) 72.0 H, Lymph % (Auto) 11.1 L, [place] % (Auto) 11.6 H, Eos % (Auto) 4.4, Baso % (Auto) 0.3, Absolute Neuts (auto) 11.7 H, Absolute Lymphs (auto) 1.79, Nucleated RBC % 0, Differential Comment COMMENT, Diff Path Review May 05/03/21 06:41: Sodium 135 L, Potassium 4.0, Chloride 103, Carbon Dioxide 28.0, Anion Gap 4 L, BUN 17, Creatinine 0.70, Estim Creat Clear Calc 33.86, Est GFR (MDRD) Af Amer 103, Est GFR (MDRD) Non-Af 85, BUN/Creatinine Ratio 24.3 H, Glucose 121 H, Calcium 8.9, Total Bilirubin 0.70, AST 7 L, ALT 12 L, Alkaline Phosphatase 99, Total Protein 7.0, Albumin 2.6 L, Globulin 4.4 H, Albumin/Globulin Ratio 0.6 L 05/04/21 05:50: WBC 12.6 H, RBC 3.78 L, Hgb 11.8 L, Hct 35.6 L, MCV 94.2, MCH 31.2, MCHC 33.1, RDW Std Deviation 42.5, RDW Coeff of Akhil 12.2, Plt Count 415, MPV 8.6, Immature Gran % (Auto) 1.000 H, Neut % (Auto) 81.8 H, Lymph % (Auto) 13.2 L, [place] % (Auto) 3.7, Eos % (Auto) 0.1, Baso % (Auto) 0.2, Absolute Neuts (auto) 10.3 H, Absolute Lymphs (auto) 1.66, Nucleated RBC % 0 Micro: Microbiology 05/02/21 16:10 Sputum, Expectorated/Coughed Gram Stain - Final 05/01/21 20:52 Urine, Clean Catch Urine Culture - Preliminary Culture exhibits no growth. 05/02/21 01:22 Mucosa - Nasopharyngeal Respiratory Panel (PCR) - Final 05/02/21 Unknown Urine, Clean Catch Legionella Antigen - Final 05/02/21 Unknown Urine, Clean Catch Streptococcus pneumoniae Antigen (M - Final
[2021-05-04 06:50] LABS: ALB/GLOB Ratio 0.6 RATIO (0.9-2.4); AST(SGOT) 9 U/L (15-37); Alanine Aminotransfer ALT/SGPT 16 U/L (13-56); Albumin, Serum 2.7 g/dL (3.2-5.0); Alkaline Phosphatase 101 U/L (45-117); Anion Gap 3 (5-15); BUN 22 mg/dL (7-18); BUN/Creat Ratio 31.3 RATIO (10-20); Calcium,Total 9.4 mg/dL (8.5-10.1); Chloride 105 mmol/L (98-107); EST Glomerular Filtration Rate 85 mL/min (>60); Est Glom Filt Rate - Afr Amer 103 mL/min (>60); Estimated Creatinine Clearance 33.86 ml/min; Globulin 4.8 g/dL (2.2-4.2); Glucose 169 mg/dL (74-106); Potassium 4.4 mmol/L (3.5-5.1); Protein, Total 7.5 g/dL (6.4-8.2); Sodium Level 135 mmol/L (136-145)
[2021-05-04 08:00] VITALS: BP 122/74; PULSE 83; RESP 18; TEMP 36.6; O2SAT 94
[2021-05-04] MEDS: Enoxaparin 40 MG/0.4 ML Syringe SC (08:39)
[2021-05-04] MEDS: Lisinopril 2.5 MG Tablet PO (08:39)
[2021-05-04] MEDS: Montelukast 10 MG Tablet PO (08:39)
[2021-05-04] MEDS: guaiFENesin 1,200 MG Tablet 1200 MG PO (08:39)
--- NOTE | 2021-05-04 08:56 | DCINST_ITS ---
Discharge Instructions Diet Discharge Diet: No restrictions Activity Discharge Activity: - (Please limit to mild to moderate activity until completed steroid, antibiotic therapy and oxygen weaned. Also, must be cleared per your primary care or pulmonary medicine for more aggressive activities. Please also avoid any triggers including being outside in the heat and humidity.) May resume sexual activity in: 1-2 weeks Dressing / Incision Call your doctor if you observe: Fever of 101 or Higher, Numbness or Tingling, Shortness of breath, Dizziness, Fainting spells, Chest pain and Increased palpitations (irregular heartbeat) Follow Up Care Test Results: Test results from this visit will be discussed in further detail at your follow-up appointment, if applicable. Discharge Plan Admission Admit Date/Time: 05/01/21 22:49 Primary Reason for Your Visit: Pneumonia, Respiratory Insufficiency, Asthma Exacerbation Attending Provider: Autumn Correia Primary Care Provider: Marcello Carlos Instructions Patient Instructions: Traveling with Oxygen, Using Oxygen Safely, Preventing Pneumonia, Treating Pneumonia, Discharge Instructions for Asthma, Using an Oxygen Tank at Home, Controlling Your Asthma, Controlling Your Asthma Triggers, Pneumonia Additional Instructions / Restrictions: During the admission you have been treated for pneumonia, asthma exacerbation and decreased oxygen levels (hypoxia, respiratory insufficiency) associated with your presentation. Please continue oxygen supplementation as directed until cleared for transition to room air with your primary care or pulmonary medicine. Please complete the antibiotic therapy and steroid taper also. If you have any concerns please contact your primary care, the [facility] ED or you may also contact the nursing charge on the medical surgical 3rd floor. Discharge Orders/Prescriptions Prescriptions: New Mucus Relief ER 1,200 mg Tablet Extended Release 12hr 1,200 mg PO BID 10 Days Qty: 20 RF: 0 albuterol sulfate 90 mcg/actuation HFA aerosol inhaler 2 puff inhalation Q4H PRN (Reason: shortness of breath or wheezing) Qty: 6.7 RF: 0 prednisone 20 mg tablet 40 mg PO DAILY 5 Days Qty: 10 RF: 0 levofloxacin 500 mg tablet 500 mg PO DAILY 3 Days Qty: 3 RF: 0 Continued lisinopril 2.5 mg tablet 2.5 mg PO DAILY RF: 0 montelukast [Singulair] 10 mg tablet 10 mg PO DAILY RF: 0 atorvastatin 10 mg tablet 10 mg PO DAILY RF: 0 Discontinued amoxicillin-pot clavulanate 875-125 mg tablet 1 tab PO BID Qty: 20 RF: 0 Referrals / Follow Up: Scottie Donald DO [STAFF PHYSICIAN] - (Please follow-up, prefer within max 2-4 weeks.) Marcello Carlos MD [Primary Care Provider] - (Please follow-up within 2-3 days to be re-evaluated following admission, have oxygenation re-checked in the office.) Disposition Disposition (needs filled in before D/C Order can be placed): Home Health Service
--- NOTE | 2021-05-04 08:58 | DS.PCM_ITS ---
Providers Date of Admission: 05/01/21 Primary Care Physician: Dr. Marcello Carlos MD Reason For Visit: ACUTE HYPOXEMIC RESPIRATORY INSUFFICIENCY Diagnosis Discharge Diagnosis (1) Pneumonia: Status: Acute Code(s): J18.9 - Pneumonia, unspecified organism Qualifiers: Pneumonia type: due to unspecified organism Laterality: bilateral Lung location: lower lobe of lung Qualified Code(s): J18.9 - Pneumonia, unspecified organism Medications at Discharge Home Medications atorvastatin 10 mg tablet 10 mg PO DAILY 04/22/21 lisinopril 2.5 mg tablet 2.5 mg PO DAILY 04/22/21 montelukast 10 mg tablet 10 mg PO DAILY 04/22/21 albuterol sulfate 2 puff INHALATION Q4H PRN #6.7 g 05/04/21 guaifenesin [Mucus Relief ER] 1,200 mg PO BID 10 Days #20 tab 05/04/21 levofloxacin 500 mg PO DAILY 3 Days #3 tab 05/04/21 prednisone 40 mg PO DAILY 5 Days #10 tab 05/04/21 Hospital Course Operations None Procedures EKG Summary of Care Provided Minutes Spent on Discharge: 35 Hospital Course: Discharge Diagnoses: 1. Acute Bilateral Pneumonia, Atypical, Possibly Viral with associated Acute Hypoxic Respiratory Insufficiency, concurrent Asthma Exacerbation with allergic rhinitis 2. Hypertension 3. Hyperlipidemia Discharge Summary: The patient is an 81 y/o F w/ PMHx: Asthma w/ allergic rhinitis, HTN, HLD who presented to the [facility] ED on 05/01/21 with history of 2 weeks of persistent dyspnea, cough which is nonproductive progressively worsening with recent urgent care evaluation with initiation of oral Augmentin regimen which was near completion with worsening respiratory status with hypoxia prompting ED evaluation. CXR in the ED with no acute cardiopulmonary findings, follow-up CTPA with no acute PE, arterial dissection with noted ill-defined subpleural ground-glass opacities more prominent bases more typical of atypical pneumonia. Patient admitted to ID, maintained on IV levaquin, negative urine antigens, negative respiratory viral panel, negative COVID PCR with vaccination history, 05/03/21 initiated on solumedrol given concern for concurrent mild asthma exacerbation, continued on oxygen with oxygenation assessment for discharge with noted requested 3L NC with activity, 2L with rest. Given improvement, patient discharged to home with oxygen supplementation set-up, follow-up with her PCP as well as referral to Pulmonary to complete steroid burst as well as levaquin regimen with PRN albuterol. Discharge Time: > 35 Minutes DAY OF DISCHARGE PROGRESS NOTE: Subjective: Patient without acute event overnight per self and nursing report. She notes feeling improved, less fatigued with no marked cough or dyspnea. Patient successfully walked in the halls without any marked dyspnea on oxygen. Patient denies fever, chills, nausea, emesis, abdominal pain, chest pain or worsened dyspnea. Patient agreeable to discharge to home. Patient will be discharged with follow-up with primary care physician in addition to Pulmonary referral.. Objective: T 97.9, heart rate 89, BP 147/71, respiratory rate 18, 95% on 2 L nasal cannula. Physical Examination: General: awake, alert, oriented x 3 and cooperative, seated upright in the MS bed, NAD. Skin: normal color, turgor, no icterus, cyanosis. HEENT: AT/NC, EOMI, PERRLA, MMM. Lungs: Diminished throughout, > bases, improved effort, no distress, no current wheezing, no rales or ronchi. Heart: Regular rate and rhythm; no gallop, rub audible. Abdomen: soft, NTTP, ND, normal BS. Extremities: no cyanosis, clubbing, or edema. Neurological: patient awake, alert, oriented as noted; cognitive function appears intact upon questioning,; pupils equally reactive to light and accomodation; cranial nerves II-XII grossly normal, moving all 4 extremities, strength improving, mildly globally decreased. Psychiatric: affect appears normal, no acute evidence of depressive or anxiety feelings. Assessment and Plan: Please see hospital summary above. Weight / BMI Weight Weight: 147 lb 7.828 oz Body Mass Index (BMI) 27.8 ABG / Lab / Microbiology Data Result Diagrams: 05/04/21 05:50 05/04/21 05:50 Laboratory: Laboratory Results - last 24 hr 05/02/21 05:54: Diff Path Review Reviewed 05/04/21 05:50: WBC 12.6 H, RBC 3.78 L, Hgb 11.8 L, Hct 35.6 L, MCV 94.2, MCH 31.2, MCHC 33.1, RDW Std Deviation 42.5, RDW Coeff of Akhil 12.2, Plt Count 415, M PV 8.6, Immature Gran % (Auto) 1.000 H, Neut % (Auto) 81.8 H, Lymph % (Auto) 13.2 L, [place] % (Auto) 3.7, Eos % (Auto) 0.1, Baso % (Auto) 0.2, Absolute Neuts (auto) 10.3 H, Absolute Lymphs (auto) 1.66, Nucleated RBC % 0 05/04/21 05:50: Sodium 135 L, Potassium 4.4, Chloride 105, Carbon Dioxide 27.0, Anion Gap 3 L, BUN 22 H, Creatinine 0.70, Estim Creat Clear Calc 33.86, Est GFR (MDRD) Af Amer 103, Est GFR (MDRD) Non-Af 85, BUN/Creatinine Ratio 31.3 H, Glucose 169 H, Calcium 9.4, Total Bilirubin 0.50, AST 9 L, ALT 16, Alkaline Phosphatase 101, Total Protein 7.5, Albumin 2.7 L, Globulin 4.8 H, Albumin/Globulin Ratio 0.6 L Microbiology: Microbiology 05/02/21 16:10 Sputum, Expectorated/Coughed Gram Stain - Final 05/02/21 16:10 Sputum, Expectorated/Coughed Respiratory Culture - Preliminary Mixed normal respiratory kaveh. No Haemophilus, Streptococcus pneumoniae, beta-hemolytic Streptococcus or Staphylococcus aureus isolated. 05/01/21 19:40 Blood Culture (Wb) - Right Hand Blood Culture - Preliminary No growth in 48 hours. 05/01/21 19:41 Blood Culture (Wb) - Anticubital Left Blood Culture - Preliminary No growth in 48 hours. 05/01/21 20:52 Urine, Clean Catch Urine Culture - Final Culture exhibits no growth. 05/02/21 01:22 Mucosa - Nasopharyngeal Respiratory Panel (PCR) - Final 05/02/21 Unknown Urine, Clean Catch Legionella Antigen - Final 05/02/21 Unknown Urine, Clean Catch Streptococcus pneumoniae Antigen (M - Final D/C Instructions Discharge Diet: No restrictions May resume sexual activity in: 1-2 weeks Call your doctor if you observe: Fever of 101 or Higher, Numbness or Tingling, Shortness of breath, Dizziness, Fainting spells, Chest pain and Increased palpitations (irregular heartbeat) Meaningful Use Info Meaningful Use Diagnoses (Choose all that apply): None applicable Discharge Plan Admission Admit Date/Time: 05/01/21 22:49 Primary Reason for Your Visit: Pneumonia, Respiratory Insufficiency, Asthma Exacerbation Attending Provider: Autumn Correia Primary Care Provider: Marcello Carlos Instructions Patient Instructions: Traveling with Oxygen, Using Oxygen Safely, Preventing Pneumonia, Treating Pneumonia, Discharge Instructions for Asthma, Using an Oxygen Tank at Home, Controlling Your Asthma, Controlling Your Asthma Triggers, Pneumonia Additional Instructions / Restrictions: During the admission you have been treated for pneumonia, asthma exacerbation and decreased oxygen levels (hypoxia, respiratory insufficiency) associated with your presentation. Please continue oxygen supplementation as directed until cleared for transition to room air with your primary care or pulmonary medicine. Please complete the antibiotic therapy and steroid taper also. If you have any concerns please contact your primary care, the [facility] ED or you may also contact the nursing charge on the medical surgical 3rd floor. Discharge Orders/Prescriptions Prescriptions: New Mucus Relief ER 1,200 mg Tablet Extended Release 12hr 1,200 mg PO BID 10 Days Qty: 20 RF: 0 albuterol sulfate 90 mcg/actuation HFA aerosol inhaler 2 puff inhalation Q4H PRN (Reason: shortness of breath or wheezing) Qty: 6.7 RF: 0 prednisone 20 mg tablet 40 mg PO DAILY 5 Days Qty: 10 RF: 0 levofloxacin 500 mg tablet 500 mg PO DAILY 3 Days Qty: 3 RF: 0 Continued lisinopril 2.5 mg tablet 2.5 mg PO DAILY RF: 0 montelukast [Singulair] 10 mg tablet 10 mg PO DAILY RF: 0 atorvastatin 10 mg tablet 10 mg PO DAILY RF: 0 Discontinued amoxicillin-pot clavulanate 875-125 mg tablet 1 tab PO BID Qty: 20 RF: 0 Referrals / Follow Up: Scottie Donald DO [STAFF PHYSICIAN] - (Please follow-up, prefer within max 2-4 weeks.) Marcello Carlos MD [Primary Care Provider] - (Please follow-up within 2-3 days to be re-evaluated following admission, have oxygenation re-checked in the office.) Disposition Disposition (needs filled in before D/C Order can be placed): Home Health Service Charges/Coding Visit Charges Inpatient E&M: 69660 Disch Hosp
--- NOTE | 2021-05-04 10:19 | CASEMGMT ---
RN CM NOTE: Pt being discharged home. Portable O2 tank was delivered to pt's room yesterday by [facility] [place], [place]. Call placed to [facility] [place], [place] and spoke w/Amira. She was made aware pt is being discharged home today. Salty DOUGLASN RN CM
[2021-05-04 12:12] VITALS: BP 118/72; PULSE 84; RESP 16; TEMP 36.8; O2SAT 95
[2021-05-04 13:37] LABS: Pathologist Review Reviewed
== END 2021-05-04 13:20 | disposition home health service (06) | DRG 194 ==
LOC: ED 18:39 → MS3 23:18
PROVIDERS: Admitting Provider Hospitalist; Emergency Provider Student in an Organized Health Care Education/Training Program; PCP Family Medicine; Visit Provider Family Medicine
DX: J12.9 Viral pneumonia, unspecified (principal); J45.901 Unspecified asthma with (acute) exacerbation; R09.02 Hypoxemia; R06.89 Other abnormalities of breathing; Z20.822 Contact with and (suspected) exposure to COVID-19; I10 Essential (primary) hypertension; E78.5 Hyperlipidemia, unspecified
CPT/HCPCS: 36415; 71275; 80048; 80053; 81001; 83605; 84145; 84484; 85025; 87040; 87070; 87086; 87205; 87449; 87633; 87635; 93005; 97161; 97166; 99251; 99285; J7040; Q9967; U0005; A4216; G0463; U0003

== ENCOUNTER → 2021-05-19 12:56 | Outpatient (CLI) | payer MEDICARE, OTHER, SELFPAY ==
[2021-04-22 16:16] VITALS: BMI 27.8
[2021-05-02 00:24] VITALS: BMI 27.8
--- NOTE | 2021-05-19 12:59 | BI_ITS ---
MAMMOGRAPHY - BILATERAL SCREENING REASON FOR EXAM: Female, 81 years old. Routine annual screening examination. PERTINENT HISTORY: Screening TECHNIQUE: Digital bilateral breast vicki (3D mammographic acquisition) in the CC and MLO projections. 2-D mediolateral oblique (MLO) and craniocaudad (CC) views of both breasts were obtained. CAD: Full Field Digital Mammography with Computer Added Detection was performed. COMPARISON: Previous mammogram obtained on 12/06/2015 FINDINGS: Breast Composition: Scattered There are no dominant masses or suspicious calcifications. No other significant abnormalities are identified. BI/SCREENING MAMM (CAD), BILAT IMPRESSION: Stable bilateral screening mammogram. Yearly follow-up mammogram recommended. (A) ASSESSMENT CATEGORY: BIRADS Category 1: Negative. A letter regarding these results will be sent to the patient by the facility within 30 days. Approximately 10% of breast cancers are not detected by mammography. A normal mammogram should not delay biopsy of a clinically suspicious abnormality. [id number] Electronically Signed: Brian Paulino DO at 16:23 EDT Tel , Service support ,
--- NOTE | 2021-05-19 13:02 | BD_ITS ---
STUDY: DUAL ENERGY X-RAY ABSORPTIOMETRY / DXA REASON FOR EXAM: Female, 81 years old. Post menopausal screening TECHNIQUE: Bone Mineral Density (BMD) measurements of lumbar spine and bilateral hips were obtained. COMPARISON: None. FINDINGS: Lumbar Spine (L1-L4): g/cm2 (0.954) / T-score (-0.9) / Z-score (1.8) Findings are suggestive of normal bone density with a low fracture risk. Left Femur Total: g/cm2 (0.729) / T-score (-1.7) / Z-score (0.3) Left Femoral Neck: g/cm2 (0.599) / T-score (-2.3) / Z-score (0.1) Right Femur Total: g/cm2 (0.761) / T-score (-1.5) / Z-score (0.6) Right Femoral Neck: g/cm2 (0.633) / T-score (-1.9) / Z-score (0.4) BD/Dexa Bone Density Study IMPRESSION: The patient is considered osteopenic as outlined below according to World Alex Organization (WHO) criteria with a moderate fracture risk. Reference Information: The T-score is the number of standard deviations above or below the standard which is normal for young adults at their peak bone mineral density. The World Health Organization (WHO) interprets the T-scores as follows: Above -1 Normal bone density Between -1 and -2.5 Osteopenia Equal to / or below -2.5 Osteoporosis As a practical clinical guideline, osteopenia may be graded as follows: Mild -1 through -1.5 Moderate -1.6 through -2.0 Severe -2.1 through -2.4 The Z-score is the number of standard deviations above or below age-matched controls. A Z-score of less than -1.5 would be considered abnormal. References: 1. NIH Osteoporosis and Related Bone Diseases www osteo.org 2. International Society for Clinical Densitometry www iscd.org 3. National Osteoporosis Foundation www nof.org Electronically Signed: Minor Arriaza MD at 8:40 EDT , Service support ,
== END ==
PROVIDERS: PCP Family Medicine; Referring Provider Family Medicine; Visit Provider Family Medicine
DX: Z12.31 Encounter for screening mammogram for malignant neoplasm of breast (principal); M85.80 Other specified disorders of bone density and structure, unspecified site; Z78.0 Asymptomatic menopausal state
CPT/HCPCS: 77067; 77080

== ENCOUNTER → 2021-08-16 15:48 | Outpatient (CLI) | payer MEDICARE, OTHER, SELFPAY ==
--- NOTE | 2021-08-16 15:51 | RAD_ITS ---
HISTORY: BRONCHITIS EXAMINATION/TECHNIQUE: XR Chest 2 Views COMPARISON: Two-view chest x-ray from 04/22/21 FINDINGS: LINES/DEVICES: None. LUNGS: Left midlung and bibasilar linear opacities. No pulmonary edema. No sizable pleural effusion. No pneumothorax. MEDIASTINUM AND CARDIOVASCULAR STRUCTURES: Heart normal size. Central airways and mediastinal contour are unremarkable. BONES AND SOFT TISSUES: Stable mild thoracolumbar scoliosis. RAD/Chest PA and Lateral IMPRESSION: Linear scarring and/or atelectasis within mid to lower lungs. at 0415 Reported and signed by: Byron Medeiros MD Electronically Signed: Byron Medeiros MD at 4:14 EDT Tel , Service support ,
== END ==
PROVIDERS: PCP Family Medicine; Referring Provider Family Medicine; Visit Provider Family Medicine
DX: J45.901 Unspecified asthma with (acute) exacerbation (principal)
CPT/HCPCS: 71046

== ENCOUNTER → 2021-08-17 | Outpatient (CLI) | payer MEDICARE, OTHER, SELFPAY | END | disposition home or self-care (01) | LOC: LABSPEC 15:35 | PROVIDERS: PCP Family Medicine; Visit Provider Family Medicine | DX: J39.9 Disease of upper respiratory tract, unspecified (principal) | CPT/HCPCS: 87633 ==

== ENCOUNTER → 2021-10-04 12:43 | Outpatient (CLI) | payer MEDICARE, OTHER, SELFPAY ==
[2021-10-04 15:20] LABS: Absolute Lymphocyte Count 2.89 X10^3/uL (0.83-4.51); Absolute Neutrophil Count 6.9 X10^3/uL (2.0-7.7); Basophil# 0.07 X10^3/uL; Basophil% 0.6 % (0-1); Eosinophil# 0.79 X10^3/uL; Eosinophils% 6.8 % (0-5); Hematocrit 39.9 % (37-47); Hemoglobin 13.1 g/dL (12.0-15.0); Lymphocyte # 2.89 X10^3/ul (0.83-4.51); Lymphocyte % 24.8 % (19-41); Mean Corp Hgb Conc 32.8 g/dL (32-36); Mean Corpuscular Volume 94.3 fL (81-99); Mean Platelet Vol. 9.1 fl (6.2-12.0); Monocyte# 1.02 X10^3/uL; Monocyte% 8.7 % (0-10); NRBC Flagged by Analyzer 0 % (0-5); Neutrophil # 6.86 X10^3/uL (2.7-7.7); Neutrophil % 58.8 % (47-70); Platelet Count 397 K/mm3 (150-450); RBC Distribution Width SD 48.8 fl (35.1-43.9); Red Blood Count 4.23 M/mm3 (4.2-5.4); White Blood Count 11.7 K/mm3 (4.4-11.0)
[2021-10-04 15:50] LABS: CRP, High Sensitivity Cardiac 7.11 mg/L
== END ==
PROVIDERS: PCP Family Medicine; Referring Provider Family Medicine; Visit Provider Family Medicine
DX: J18.9 Pneumonia, unspecified organism (principal); D72.829 Elevated white blood cell count, unspecified; E78.5 Hyperlipidemia, unspecified
CPT/HCPCS: 85025; 86141

== ENCOUNTER → 2021-10-05 | Outpatient (CLI) | payer MEDICARE, OTHER, SELFPAY | END | disposition home or self-care (01) | LOC: LABSPEC 13:44 | PROVIDERS: PCP Family Medicine; Referring Provider Family Medicine; Visit Provider Family Medicine | DX: J18.9 Pneumonia, unspecified organism (principal) | CPT/HCPCS: 87070; 87186; 87205 ==

== ENCOUNTER → 2022-02-10 | Outpatient (CLI) | payer MEDICARE, OTHER, SELFPAY ==
[2022-02-10 12:40] LABS: Hemoglobin 12.9 g/dL (12.0-15.0); Mean Corp Hgb Conc 33.1 g/dL (32-36); Mean Corpuscular Hgb 31.5 pg (27.0-32.0); Mean Corpuscular Volume 95.1 fL (81-99); Mean Platelet Vol. 8.8 fl (6.2-12.0); Platelet Count 376 K/mm3 (150-450); RBC Distribution Width SD 49.1 fl (35.1-43.9); White Blood Count 7.4 K/mm3 (4.4-11.0)
== END | disposition home or self-care (01) ==
LOC: MFPLAB 10:28
PROVIDERS: PCP Family Medicine; Referring Provider Family Medicine; Visit Provider Internal Medicine Pulmonary Disease
DX: I10 Essential (primary) hypertension (principal); J98.11 Atelectasis
CPT/HCPCS: 36415; 85027

== ENCOUNTER → 2022-08-11 | Outpatient (CLI) | payer MEDICARE, OTHER, SELFPAY ==
[2022-08-11 12:28] LABS: Vitamin D,25 Hydroxy 27.2 ng/mL
[2022-08-11 12:30] LABS: ALB/GLOB Ratio 1.1 RATIO (0.9-2.4); AST(SGOT) 20 U/L (15-37); Alanine Aminotransfer ALT/SGPT 33 U/L (13-56); Albumin, Serum 3.8 g/dL (3.2-5.0); Alkaline Phosphatase 92 U/L (45-117); Anion Gap 7 (5-15); BUN 22 mg/dL (7-18); BUN/Creat Ratio 24.7 RATIO (10-20); Calcium,Total 9.1 mg/dL (8.5-10.1); Chloride 106 mmol/L (98-107); Cholesterol 188 mg/dL (200); Creatinine, Serum 0.89 mg/dL (0.55-1.02); EST Glomerular Filtration Rate 65 mL/min (>60); Est Glom Filt Rate - Afr Amer 78 mL/min (>60); Globulin 3.6 g/dL (2.2-4.2); Glucose 129 mg/dL (74-106); High Density Lipoprotein 104 mg/dL; Potassium 4.2 mmol/L (3.5-5.1); Protein, Total 7.4 g/dL (6.4-8.2); Sodium Level 139 mmol/L (136-145); Triglycerides 128 mg/dL; Very Low Density Lipoprotein 26 mg/dL (5-40)
[2022-08-11 15:33] LABS: Microalbumin,Random Urine 22.5 mg/L (NO RANGE EST.); Microalbumin:Creatinine Ratio 9.5 mg/g CRE (<30 mg/g CRE)
== END | disposition home or self-care (01) ==
PROVIDERS: PCP Family Medicine; Referring Provider Family Medicine; Visit Provider Family Medicine
DX: E78.00 Pure hypercholesterolemia, unspecified (principal); M85.80 Other specified disorders of bone density and structure, unspecified site; I10 Essential (primary) hypertension
CPT/HCPCS: 36415; 80053; 80061; 82043; 82306; 82570

== ENCOUNTER → 2023-02-05 | Outpatient (CLI) | payer MEDICARE, OTHER, SELFPAY ==
[2023-02-05 16:12] LABS: Anion Gap 4 (5-15); BUN 18 mg/dL (7-18); BUN/Creat Ratio 21.8 RATIO (10-20); Calcium,Total 8.9 mg/dL (8.5-10.1); Chloride 108 mmol/L (98-107); Creatinine, Serum 0.83 mg/dL (0.55-1.02); EST Glomerular Filtration Rate 70 mL/min (>60); Est Glom Filt Rate - Afr Amer 85 mL/min (>60); Glucose 110 mg/dL (74-106); Potassium 3.9 mmol/L (3.5-5.1); Sodium Level 139 mmol/L (136-145)
== END | disposition home or self-care (01) ==
LOC: MFPLAB 14:02
PROVIDERS: PCP Family Medicine; Visit Provider Family Medicine
DX: I10 Essential (primary) hypertension (principal)
CPT/HCPCS: 36415; 80048

== ENCOUNTER → 2023-08-23 | Outpatient (CLI) | payer MEDICARE, OTHER, SELFPAY ==
[2023-08-23 17:37] LABS: Absolute Lymphocyte Count 2.88 X10^3/uL (0.83-4.51); Absolute Neutrophil Count 3.9 X10^3/uL (2.0-7.7); Basophil# 0.07 X10^3/uL; Basophil% 0.8 % (0-1); Eosinophil# 1.06 X10^3/uL; Hematocrit 39.9 % (37-47); Hemoglobin 13.1 g/dL (12.0-15.0); Lymphocyte # 2.88 X10^3/ul (0.83-4.51); Lymphocyte % 32.7 % (19-41); Mean Corp Hgb Conc 32.8 g/dL (32-36); Mean Corpuscular Volume 94.5 fL (81-99); Mean Platelet Vol. 9.2 fl (6.2-12.0); Monocyte# 0.86 X10^3/uL; Monocyte% 9.8 % (0-10); NRBC Flagged by Analyzer 0 % (0-5); Neutrophil # 3.91 X10^3/uL (2.7-7.7); Neutrophil % 44.5 % (47-70); Platelet Count 306 K/mm3 (150-450); RBC Distribution Width CV 13.3 % (11.6-14.6); RBC Distribution Width SD 46.3 fl (35.1-43.9); Red Blood Count 4.22 M/mm3 (4.2-5.4); White Blood Count 8.8 K/mm3 (4.4-11.0)
[2023-08-23 17:49] LABS: Vitamin D,25 Hydroxy 38.7 ng/mL
[2023-08-23 18:07] LABS: AST(SGOT) 19 U/L (15-37); Alanine Aminotransfer ALT/SGPT 35 U/L (13-56); Albumin, Serum 3.6 g/dL (3.2-5.0); Alkaline Phosphatase 95 U/L (45-117); Anion Gap 5 (5-15); BUN 23 mg/dL (7-18); BUN/Creat Ratio 20.2 RATIO (10-20); Calcium,Total 9.1 mg/dL (8.5-10.1); Chloride 109 mmol/L (98-107); Cholesterol 163 mg/dL (200); Creatinine, Serum 1.14 mg/dL (0.55-1.02); EST Glomerular Filtration Rate 48 mL/min (>60); Est Glom Filt Rate - Afr Amer 59 mL/min (>60); Globulin 3.5 g/dL (2.2-4.2); Glucose 114 mg/dL (74-106); High Density Lipoprotein 72 mg/dL; Potassium 3.9 mmol/L (3.5-5.1); Protein, Total 7.1 g/dL (6.4-8.2); Sodium Level 141 mmol/L (136-145); Triglycerides 151 mg/dL; Very Low Density Lipoprotein 30 mg/dL (5-40)
[2023-08-24 10:37] LABS: Microalbumin,Random Urine < 5.0 mg/L (NO RANGE EST.)
== END | disposition home or self-care (01) ==
LOC: MTLAB 15:12
PROVIDERS: PCP Family Medicine; Referring Provider Family Medicine; Visit Provider Family Medicine
DX: J45.909 Unspecified asthma, uncomplicated (principal); M85.80 Other specified disorders of bone density and structure, unspecified site; I10 Essential (primary) hypertension; E78.00 Pure hypercholesterolemia, unspecified
CPT/HCPCS: 36415; 80053; 80061; 82043; 82306; 82570; 85025

== ENCOUNTER → 2023-08-24 | Outpatient (CLI) | payer MEDICARE, OTHER, SELFPAY | END | disposition home or self-care (01) | LOC: MTLAB 09:00 | PROVIDERS: PCP Family Medicine; Referring Provider Family Medicine; Visit Provider Family Medicine | DX: Z00.00 Encounter for general adult medical examination without abnormal findings (principal) ==

== ENCOUNTER → 2024-02-21 | Outpatient (CLI) | payer MEDICARE, OTHER, SELFPAY ==
[2024-02-21 12:36] LABS: Anion Gap 3 (5-15); BUN 20 mg/dL (7-18); BUN/Creat Ratio 19.8 RATIO (10-20); Calcium,Total 9.2 mg/dL (8.5-10.1); Chloride 109 mmol/L (98-107); Creatinine, Serum 1.01 mg/dL (0.55-1.02); EST Glomerular Filtration Rate 56 mL/min (>60); Est Glom Filt Rate - Afr Amer 67 mL/min (>60); Glucose 120 mg/dL (74-106); Potassium 4.5 mmol/L (3.5-5.1); Sodium Level 140 mmol/L (136-145)
== END | disposition home or self-care (01) ==
LOC: MFPLAB 10:48
PROVIDERS: PCP Family Medicine; Visit Provider Family Medicine
DX: I10 Essential (primary) hypertension (principal)
CPT/HCPCS: 36415; 80048

== ENCOUNTER → 2024-11-18 | Outpatient (CLI) | payer MEDICARE, OTHER, SELFPAY ==
--- NOTE | 2024-11-18 07:53 | BI_ITS ---
PROCEDURE: SCRN MAMM (CAD)W/DENNIS BILAT REASON FOR EXAM: F, Age 84 y/o, no family history. Remote right excisional breast biopsies. TECHNIQUE: Bilateral screening digital breast tomosynthesis with 2D and 3D images. Computer aided detection. COMPARISON: Prior exam(s) dating back to comparison is made with prior study dated May 19, 2021.. FINDINGS: There are scattered areas of fibroglandular density. Stable examination. No suspicious masses, areas of developing architectural distortion, or suspicious calcifications. BI/SCRN MAMM (CAD)W/DENNIS BILAT IMPRESSION: BI-RADS 1: NEGATIVE. RECOMMEND ANNUAL MAMMOGRAPHIC SCREENING. Follow-up code: Routine Follow-up The patient will be notified of the results by letter. Reading Location: [place] [address]
--- NOTE | 2024-11-18 07:57 | BD_ITS ---
EXAM: CLINICAL INDICATION: Determine bone density. CLINICAL HISTORY: Postmenopausal COMPARISON: 05/19/2021 TECHNIQUE: Bone densitometry of the lumbar spine and hips was performed using the HOLOGIC DEXA scanner. FINDINGS: Bone Density Measurements: SPINE AP Spine (L1-L4): 0.953 g/cm2 T-Score: -1.3 Z-Score: 1.6 WHO Classification: OSTEOPENIA There is -3.1 % change since the prior examination of 05/19/2021 LEFT FEMUR Femoral TOTAL (LEFT): 0.721 g/cm2 T-Score: -1.8 Z-Score: 0.5 WHO Classification: OSTEOPENIA Femoral NECK (LEFT): 0.620 g/cm2 T-Score: -2.1 Z-Score: 0.4 WHO Classification: OSTEOPENIA There is -1.1 % change since the prior examination of 05/19/2021 10 year FRAX: Major osteoporotic fracture: 16% Hip fracture: 4.9% RIGHT FEMUR Femoral TOTAL (RIGHT): 0.736 g/cm2 T-Score: -1.7 Z-Score: 0.6 WHO Classification: OSTEOPENIA Femoral NECK (RIGHT): 0.64 g/cm2 T-Score: -1.9 Z-Score: 0.5 WHO Classification: OSTEOPENIA There is -3.4 % change since the prior examination of 05/19/2021 10 year FRAX: Major osteoporotic fracture: 15% Hip fracture: 4.5% BD/Dexa Bone Density Study IMPRESSION: Osteopenia There is -5.9 % change in the mean (mean of the right and left) proximal femora l bone density since the prior examination of 06/23/2015. World Health Organization criteria for BMD interpretation classify patients as: Normal (T-score at or above -1.0), Osteopenic (T-score between -1.0 and -2.5),or Osteoporotic (T-score at or below -2.5). The presence of vertebral abnormalities such as scoliosis or osteophytes, or ao rtic/ligamentous calcifications can alter readings of the lumbar spine. In such cases, readings of the hips are more reliable. Reading Location: [facility]
== END | disposition home or self-care (01) ==
LOC: OPBD 07:50
PROVIDERS: PCP Family Medicine; Referring Provider Family Medicine; Visit Provider Family Medicine
DX: Z12.31 Encounter for screening mammogram for malignant neoplasm of breast (principal); Z78.0 Asymptomatic menopausal state; M85.80 Other specified disorders of bone density and structure, unspecified site; M81.0 Age-related osteoporosis without current pathological fracture
CPT/HCPCS: 77063; 77067; 77080

== ENCOUNTER 2025-03-10 10:30 | Outpatient (RCR) | payer MEDICARE, OTHER, SELFPAY ==
--- NOTE | 2024-12-30 12:02 | HP.PTEVAL ---
Patient's Visit Information Visit Information Visit Information: CRESCENCIO GARVIN is a 84 year old F referred to Physical Therapy by Dr. Marcello Carlos MD with a diagnosis of L shoulder pain. Date of Evaluation: 12/30/24 Physical Therapist: Chinedu Coleman, PT, ATC Visit Plan Frequency: 2-3x /Week Duration: 4-6 Weeks Plan: L shoulder rot cuff strengthening, scap stab ex's, UBE, and HEP Subjective Subjective: Pt reports her L shoulder has been sore for a couple months. Pt notes she attempted to lift a container with water bottles in it when she experienced significant pain in her L shoulder. Pt reports the pain is intermittent in nature, and notes her pain only occurs when she performs specific movements. Pt notes she has difficulty with overhead lifting at this time secondary to pain. Pt denies any tingling or numbness in L UE at this time. Pt reports she is R hand dominant. Pt reports she has had x-rays which revealed no significant findings. Pt reports no sleep difficulty at this time secondary to pain as long as she takes advil. Pt reports she has difficulty with putting away dishes and getting dressed at this time secondary to L shoulder pain. L shoulder pain is 0/10 at rest, and 5/10 pain at worst Pain L shoulder: Pain Intensity (Out of 10): 0 Pain Intensity Range: 5 Objective Objective: Neuro: B UE sensation is WNL to light touch. B bicipital reflex= 2/3 Palpation: Pt is sore throughout the distribution of the supraspinatus tendon. No obvious deformity noted. ROM: R shoulder flex= 170, abd= 170, ER= 50, IR= WNL; L shoulder Flex= 75, abd= 55, ER= 0, IR= WNL MMT: R shoulder flex= 5, abd= 13, ER= 8, IR= 15 #F; L shoulder Flex= 0, abd= 6, ER= 0, IR= 12 m#F Special tests: Pos empty can Balance/Special Test Scores Quick DASH Score: 27.0426 Goals Goal 1:: Decrease L shoulder pain x 50 % to aid with IADL's Goal Time Frame: 4-6 Weeks Goal 2:: Increase L shoulder flex and abd ROM x 30 degrees to aid with overhead lifting Goal Time Frame: 4-6 Weeks Goal 3:: Increase L shoulder strength x 5-10#F to aid with IADLs Goal Time Frame: 4-6 Weeks Goal 4:: I with HEP Goal Time Frame: 4-6 Weeks Rehabilitation Potential Physical Therapy Diagnosis: Pt has L shoulder pain, weakness, and limited ROM secondary to L rotator cuff tendinopathy Rehabilitation Potential: Good Anticipated Interventions Patient/Client Instruction: Educate patient on: Condition and Plan of Care For the Purpose of:: To improve self management Therapeutic Exercise to Include: Strength training, Endurance training, Active ROM and Scapular Strength/Stabilization For the Purpose of:: To decrease pain, To increase ROM and To improve muscle performance and motor function Cryotherapy (ice pack, ice massage): Yes For the Purpose of:: To decrease pain Text: Thank you for the opportunity to evaluate your patient. For Medicare and Medicare HMO plans, please review the plan of care and approve it. It will need to be FAXED BACK to us at [phone] for Medicare purposes. For Medicare only, by signing this I certify the plan of care. Please let me know if there are questions or concerns regarding this plan of care. Physician Signature: Date:
--- NOTE | 2025-02-03 11:02 | HP.PTREVAL ---
Re-Evaluation Intro: Dr. Marcello Carlos MD, It has been my pleasure to treat CRESCENCIO GARVIN over the last 9 visits for L shoulder pain. Please see the progress note below for an update on the physical therapy plan of care! Subjective Subjective: I dont have any pain at rest, but I hurt a lot with movement Objective Objective/Function: L shoulder pain ranges from 0-5/10 L shoulder ROM: flex= 50, abd= 65 degrees L shoulder MMT: flex= 0, abd= 6, IR= 13, ER= 0 #F Pt continues to lack functional strength and ROM in L shoulder to perform IADL's Plan Plan Plan: 02/03/25- Cont with L shoulder rot cuff strengthening, scap stab ex's, UBE, and HEP Balance/Gait/Functional tests Balance/Special Test Scores Quick DASH Score: 40.9075 Goals Goals Goal 1:: Decrease L shoulder pain x 50 % to aid with IADL's Goal Time Frame: 4-6 Weeks Goal Progress: Progressing Goal 2:: Increase L shoulder flex and abd ROM x 30 degrees to aid with overhead lifting Goal Time Frame: 4-6 Weeks Goal 3:: Increase L shoulder strength x 5-10#F to aid with IADLs Goal Time Frame: 4-6 Weeks Goal 4:: I with HEP Goal Time Frame: 4-6 Weeks Anticipated Interventions Anticipated Interventions Patient/Client Instruction: Educate patient on: Condition and Plan of Care For the Purpose of:: To improve self management Therapeutic Exercise to Include: Strength training, Endurance training, Active ROM and Scapular Strength/Stabilization For the Purpose of:: To decrease pain, To increase ROM and To improve muscle performance and motor function Cryotherapy (ice pack, ice massage): Yes For the Purpose of:: To decrease pain Re-Evaluation Ending Re-evaluation ending: Please do not hesitate to contact me at [phone] by phone or if you have questions or concerns regarding this new plan of care! Sincerely, Chinedu Coleman, PT, ATC
--- NOTE | 2025-03-10 11:13 | HP.PTDCSUM ---
Discharge Summary D/C summary: It has been my pleasure to treat CRESCENCIO GARVIN referred by Dr. Marcello Carlos MD, with the diagnosis of L shoulder pain for a total of 16 visit(s). Discharge Date: Please see the following information for a summary of their discharge status. Subjective Subjective: Less pain today Pain L shoulder: Pain Intensity (Out of 10): 2 Overall Improvement % Improvement: 80 Objective Objective/Function: L shoulder pain ranges from 2-6/10 L shoulder ROM: flex= 90, abd= 80, ER= -5, IR= WNL L shoulder MMT: flex= 0, abd= 6, ER= 0, IR= 8 #F Pt is I with HEP Goals Goal 1:: Decrease L shoulder pain x 50 % to aid with IADL's Goal Progress: Progressing Goal 2:: Increase L shoulder flex and abd ROM x 30 degrees to aid with overhead lifting Goal 3:: Increase L shoulder strength x 5-10#F to aid with IADLs Goal 4:: I with HEP Plan Plan: Discontinue to HEP D/C Information d/c sentence: If there are questions or concerns regarding this patient's physical therapy, please feel free to call me at [phone]. Thank you for the referral of this patient. Sincerely, Chineud Coleman, PT, ATC Balance/Gait/Functional tests Balance/Special Test Scores Quick DASH Score: 36.3625 Improvement % Improvement: 80
== END 2025-03-10 12:49 | disposition home or self-care (01) ==
LOC: PT 10:30
PROVIDERS: PCP Family Medicine; Referring Provider Family Medicine; Visit Provider Family Medicine
DX: M79.602 Pain in left arm (principal)
CPT/HCPCS: 97110; 97161; 97530